=== PATIENT | male | born 1990 | race Caucasian/White ===

== ENCOUNTER 2017-06-21 19:31 | Emergency (ER) | payer SELFPAY ==
[~2017-06-21] VITALS: Wt 68.5 kg
[2017-06-21] MEDS ORDERED: morphine 4 MG/ML VIAL IV STA (22:01)
[2017-06-21] MEDS ORDERED: ONDANSETRON 4 MG INJ IV STA (22:01)
[2017-06-21] MEDS ORDERED: KETOROLAC 30 MG INJ IV STA (22:01)
[2017-06-21] MEDS ORDERED: SOD CHLORIDE 0.9% 1,000 ML IV ONE (22:30)
--- NOTE | 2017-06-21 23:17 | ERD ---
ER Documentation Chief Complaint Date/Time DATE: 06/21/17 Chief Complaint Left-sided neck pain HPI The patient is a 26-year-old male who presents to the Emergency Department with complaint of pain to the left nuchal region. The patient reports that his symptoms began two weeks ago, after cracking his neck from side to side. The patient notes that he has been cracking his neck regularly over the past several years. However, after doing so two weeks ago, he began to experience a sharp, sudden pain to the nuchal region of the left neck, near the base of the skull. The pain has been present intermittently since, noted to be worse with movement, percussion and palpation of the area. He denies any visual changes, diplopia, blurred vision, vision loss. Denies numbness, paresthesias or weakness of the distal extremities. Denies weakness of the neck muscles. Denies difficulty with speech or ambulation. Denies dizziness, nausea, vomiting, altered mental status, confusion. Denies any decreased sensation to the site of pain. Denies any falls, injury or trauma to the area. He rates his current pain as 10/10, but notes that he has not taken any medication for pain relief today. Over the past several days, however, he has been taking Excedrin, with minimal relief. No other complaints at this time. ROS All systems reviewed and are negative except as per history of present illness. Medications Home Meds Active Scripts Ibuprofen* (Motrin*) 600 Mg Tab, 600 MG PO Q6, #30 TAB Prov:LAURENT GOODE PA-C 06/21/17 Tizanidine Hcl* (Tizanidine Hcl*) 2 Mg Tablet, 2 MG PO Q8H Y for SPASTICITY, # 15 TAB Prov:LAURENT GOODE PA-C 06/21/17 Allergies Allergies: Coded Allergies: No Known Allergy (Unverified , 06/21/17) PMhx/Soc Medical and Surgical Hx: pt denies Medical Hx History of Surgery: Yes (APPENDECTOMY) Hx Alcohol Use: No Hx Substance Use: No Hx Tobacco Use: No Smoking Status: Never smoker Physical Exam Vitals Vital Signs Date Time Temp Pulse Resp B/P Pulse Ox O2 Delivery O2 Flow Rate FiO2 06/21/17 19:56 98.6 80 20 142/101 98 Physical Exam GENERAL: Well-developed, well-nourished, in no acute distress. HEENT: Head is normocephalic, atraumatic. No scleral pallor or icterus. Pupils equal, round and reactive to light. Extraocular movements intact. Conjunctiva pink. Moist mucous membranes. No pharyngeal erythema or exudates. Uvula is midline. NECK: Supple. Point tenderness to palpation over the left nuchal region and paracervical muscles of the neck with palpable spasm noted. No midline bony tenderness. No step offs. No crepitus. Trachea midline. No nuchal rigidity. Full range of motion. RESPIRATORY: Lungs are clear to auscultation bilaterally. Equal breath sounds. Normal expiratory effort. CARDIOVASCULAR: Regular rate and rhythm. S1 and S2 normal. No murmurs, rubs, or gallops. GASTROINTESTINAL: Abdomen is soft, nontender, and nondistended. FLANK: No CVA tenderness. BACK: No midline tenderness. No paraspinal tenderness. Spine curve normal. No deformities. EXTREMITIES: No clubbing, cyanosis, or edema. Normal skin perfusion. Full range of motion of both the upper and lower extremities bilaterally. Muscle tone is normal. No focal swelling or erythema. Distal pulses are palpable, 2+ bilaterally. Capillary refill is less than 2 seconds. NEUROLOGIC: The patient is alert, awake, and oriented x 3. No focal neurologic deficits. Cranial nerves are grossly intact. Gait is observed and normal. There is no ataxia. Motor normal in all extremities. Sensation grossly intact. Coordination normal. Speech is normal. INTEGUMENT: Skin is clean, dry and intact. PSYCHIATRIC: Appropriate; Cooperative. Results 24 hrs Current Medications Medications (Trade) Dose Ordered Sig/Kamari Route PRN Reason Start Time Stop Time Status Last Admin Dose Admin Ketorolac Tromethamine (Toradol) 30 mg ONCE STAT IV 06/21/17 22:01 06/21/17 22:04 DC 06/21/17 22:13 Morphine Sulfate (morphine) 4 mg ONCE STAT IV 06/21/17 22:01 06/21/17 22:04 DC 06/21/17 22:14 Ondansetron HCl 4 mg 4 mg ONCE STAT IV 06/21/17 22:01 06/21/17 22:04 DC 06/21/17 22:13 Sodium Chloride (NS) 1,000 ml @ 1,000 mls/hr Q1H ONCE IV 8/10/17 22:30 06/21/17 23:29 DC 06/21/17 22:13 Procedures/MDM This is a 26-year-old male presenting to the Emergency Department with left- sided neck pain that began after cracking his neck 2 weeks ago. He had tenderness to palpation over the left base of the skull and left paracervical muscles with palpable spasm on physical examination. Otherwise, he had no other significant abnormalities on physical examination, exhibited no altered mental status, neurologic deficits or meningeal signs. The differential diagnosis includes, but is not limited to, intracerebral bleeding, cerebral aneurysm, spinal cord trauma, vertebral artery dissection, occipital neuralgia, carotid artery dissection, whiplash injury, fracture/dislocation, herniated disc, meningitis, encephalitis, brain abscess, embolic stroke, brain tumor, temporal arteritis, sinusitis, migraine headache, tension headache, acute glaucoma, cluster headache, pseudotumor cerebri, encephalopathy. His condition improved during his stay. After rest and administration of Morphine, Toradol, Zofran and fluids the patient reports no new complaints and significantly decreased pain. Patient with no focal findings on examination, no deficits, and therefore advanced imaging not indicated at this time. Upon my review and interpretation of the patient's presentation and overall ER course, I believe the patient's symptoms are most consistent with neck pain/ spasm. Suspect benign etiology. Doubt meningitis, patients neck is supple, no fevers, no meningismus. Doubt TBI, no preceding trauma. Doubt subarachnoid hemorrhage, headache was not [id number], no focal deficits, neck is supple. Doubt temporal arteritis, no jaw claudication, no visual changes. Doubt acute glaucoma, no consistent visual or ocular symptoms. Doubt mass or CVA based on neurologic examination. At this time, the patient is in stable condition and therefore can be discharged home with a prescription for Ibuprofen and Tizanidine and given strict return precautions for signs of deteriorating or worsening condition. He is advised to follow up with his primary care provider for reevaluation and further management within 2-3 days, or to return to the ER sooner for any worsening symptoms. I shared my medical decision making and plan with the patient at length and in great detail, and the patient verbally understands and agrees with the plan for further observation and care as an outpatient. At the time of discharge, all questions were answered. Departure Diagnosis: Primary Impression: Neck muscle spasm Condition: Stable Patient Instructions: Neck Exercises: Active Neck Rotation, Neck Spasm, No Trauma Additional Instructions: Call your primary care doctor TOMORROW for an appointment during the next 2-3 days.See the doctor sooner or return here if your condition worsens before your appointment time. LAURENT GOODE PA-C Jun 21, 2017 23:17
[2017-06-21] MEDS ORDERED: IBUP-1542 PO (23:18)
[2017-06-21] MEDS ORDERED: TIZA2TAB PO (23:18)
== END 2017-06-21 23:37 | disposition home or self-care (01) ==
LOC: FTE 19:31
DX: M62.838 Other muscle spasm (principal)
CPT/HCPCS: 96374; 96375; 99284; J1885; J2270; J2405; J7030